=== PATIENT | male | born 2000 | race Caucasian/White ===

== ENCOUNTER → 2021-04-06 | Day surgery (SDC) | payer OTHER ==
[~2021-04-06] VITALS: Ht 185.4 cm; Wt 102.0 kg
[~2021-04-06] MED LIST: CLEOCIN300 MG PO
[2021-04-06 07:51] LABS: BASOPHIL 0.3 % (0-2); EOSINOPHIL 0.9 % (0-5); HCT 46.2 % (42.0-52.0); LYMPHOCYTE 39.2 % (15-48); MCH 30.3 pg (25.0-31.0); MCHC 34.6 g/dL (32.0-36.0); MCV 87.5 fL (78.0-100.0); MPV 9.4 fL (6.0-9.5); NEUTROPHIL 52.3 % (41-80); NRBC 0; PLT 333 K/uL (150-400); RBC 5.28 M/uL (4.70-6.00); RDW 11.6 % (11.5-14.0); WBC 11.3 K/uL (4.0-10.5)
== END | disposition home or self-care (01) ==
LOC: FAS 03-23 12:00
PROVIDERS: Oral & Maxillofacial Surgery
DX: K02.9 Dental caries, unspecified (principal); K01.1 Impacted teeth; F41.9 Anxiety disorder, unspecified; Z88.0 Allergy status to penicillin
CPT/HCPCS: 36415; 85025; J1100; J1170; J1885; J2250; J2405; J2704; J3010; J7120